=== PATIENT | female | born 1990 | race Caucasian/White ===

== ENCOUNTER 2024-08-29 01:50 | Emergency (ER) | payer OTHER ==
[~2024-08-29] VITALS: Ht 172.7 cm; Wt 113.9 kg
[~2024-08-29 01:50] MED LIST: BENZONATATE200 MG PO; FLONASE ALLERG9.9 ML INH; MUCINEX DM ER1 EAC1 PO; PROAIR DIGIHAL90 MCG INH
[2024-08-29 02:00] VITALS: PULSE 75; RESP 18; TEMP 98.7
[2024-08-29] MEDS ORDERED: TOBRADEX ST EYE5 ML OS (02:53)
[2024-08-29] MEDS ORDERED: CLEOCIN HCL300 MG PO (02:55)
[2024-08-29 03:00] VITALS: BP 142/71; PULSE 75; RESP 48; TEMP 98.7; O2SAT 100
== END 2024-08-29 03:00 | disposition home or self-care (01) ==
LOC: FSED 01:58
DX: H01.00B Unspecified blepharitis left eye, upper and lower eyelids (principal)
CPT/HCPCS: 99282